=== PATIENT | female | born 1965 | race Caucasian/White ===

== ENCOUNTER 2016-10-23 18:32 | Emergency (ER) | payer OTHER ==
[~2016-10-23 18:32] MED LIST: ADRENALINE CHL INJ ONE; BENADRYL INJ 50 MG VIAL ONE; SOLU-Medrol 125 MG VIAL ONE
[2016-10-23] MEDS ORDERED: SOLU-Medrol 125 MG VIAL IVP ONE (18:35)
[2016-10-23] MEDS ORDERED: BENADRYL INJ 50 MG VIAL IVP ONE (18:35)
[2016-10-23 18:36] VITALS: BMI 21.6
[2016-10-23] MEDS ORDERED: BENADRYL INJ 50 MG VIAL IM ONE (18:39)
--- NOTE | 2016-10-23 18:45 | DR.GENAD ---
HPI - Complaint/Symptoms Chief Complaint Doctors Comments: Patient is alert in NAD; intercostal retraction, no wheeze or nasal flaring, minimal wheal reaction of left hand. Chief Complaint:: PATIENT WAS STUNG BY MULT. WASPS AND IS HAVING TROUBLE BREATHING AT THIS TIME. PATIENT STATED THAT THIS HAPPENED ABOUT 15 MINS AGO. - Source History Provided: Patient - Mode of Arrival Mode of Arrival: Ambulatory - Timing Onset of Chief Complaint: 10/23/16 PMH - PMH Past Medical History: Yes Past Medical History: Anxiety, Headaches Past Surgical History: Yes Surgical History: , Hysterectomy, Other - Family History History of Family Medical Conditions: Yes Family Medical History: Cancer, Hypertension - Social History Does patient currently use any type of tobacco product: No Have you used tobacco products in the last 12 months: No Type of Tobacco Use: None Does any household member use tobacco: No Alcohol Use: None Do you use any recreational Drugs:: Yes Lives With: Family Lives Where: Home - infectious screening In the last 2 months have you had wt loss of >10#?: NO Have you had fever, night sweats or hemotysis?: No Have you traveled outside the country in the last 6 months?: No Isolation: Standard ROS - Review of Systems Eyes: No Symptoms Reported ENTM: No Symptoms Reported Respiratoy: No Symptoms Reported Cardiovascular: No Symptoms Reported Gastrointestinal/Abdominal: No Symptoms Reported Genitourinary: No Symptoms Reported Neurological: No Symptoms Reported Musculoskeletal: No Symptoms Reported Integumentary: Lesions (pin point lesion on left hand) Hematologic/Lymphatic: No Symptoms Reported Endocrine: No Symptoms Reported Psychiatric: No Symptoms Reported All Other Systems: Reviewed and Negative PE - Vital Signs Vitals: Pulse Rate [Apical] 78 Pulse Rate 86 Respiratory Rate 17 Blood Pressure [Left Arm] 113/62 Blood Pressure [Right Arm] 112/62 Blood Pressure 122/81 O2 Sat by Pulse Oximetry 100 - General Limitations: No Limitations General Appearance: Alert, In No Apparent Distress - Head Head Exam: Normal Inspection, Atraumatic - Eyes Eye exam: Normal Appearance, PERRL, EOMI - ENT ENT Exam: Normal Exam External Ear Exam: Normal External Inspection TM/Canal Exam: Bilateral Normal Nose Exam: Normal Nose Exam Mouth Exam: Normal Inspection Throat Exam: Normal Inspection - Neck Neck Exam: Normal Inspection - Chest Chest Inspection: Normal Inspection - Respiratory Respiratory Exam: Normal Lung Sounds Bilat Respiratory Exam: Bilateral Clear to Auscultation - Cardiovascular Cardiovascular Exam: Regular Rate, Normal Rhythm - Abdominal Exam Abdominal Exam: Normal Inspection, Normal Bowel Sounds Abdominal Tenderness: negative: RUQ, RLQ, LUQ, LLQ, Epigastrium, Suprapubic, Diffuse, Mild, Moderate, Severe, Other - Extremities Extremities Exam: Other (left dorsum of hand with 3-5 minute punctums c/w insect bites) - Back Back Exam: Normal Inspection - Neurologic Neurological Exam: Alert, Oriented X3, CN II-XII Intact - Psychiatric Psychiatric Exam: Normal Affect - Skin Skin Exam: Warm, Dry, Intact Course - Treatment Treatment: NS, epi,diphenhydramine.solu medrol, pepcid - Reevaluation 1st: Improved ROR - Labs Reviewed Result Diagrams: 10/23/16 18:35 10/23/16 18:35 Laboratory: WBC 9.5 X10^3/uL (3.6-10.0) 10/23/16 18:35 RBC 4.35 X10^6/uL (3.5-5.4) 10/23/16 18:35 Hgb 13.9 g/dL (12.0-16.0) 10/23/16 18:35 Hct 39.4 % (36.0-47.0) 10/23/16 18:35 MCV 90.5 fL (80.0-100.0) 10/23/16 18:35 MCH 32.0 pg (27.0-34.0) 10/23/16 18:35 MCHC 35.3 g/dL (33.0-35.0) H 10/23/16 18:35 RDW 12.8 % (11.6-16.5) 10/23/16 18:35 Plt Count 294 X10^3/uL (150.0-450.0) 10/23/16 18:35 MPV 8.0 fL (7.4-11.0) 10/23/16 18:35 Neut % 68.1 % (42.0-75.0) 10/23/16 18:35 Lymph % 24.2 % (21.0-51.0) 10/23/16 18:35 [place] % 6.3 % (0.0-13.0) 10/23/16 18:35 Eos % 0.4 % (0.9-2.9) L 10/23/16 18:35 Baso % 1.0 % (0.2-1.0) 10/23/16 18:35 Neut # 6.5 x10^3/uL (2.2-4.8) H 10/23/16 18:35 Lymph # 2.3 X10^3/uL (1.3-2.9) 10/23/16 18:35 [place] # 0.6 x10^3/uL (0.3-0.8) 10/23/16 18:35 Eos # 0.0 x10^3/uL (0.0-0.2) 10/23/16 18:35 Baso # 0.1 X10^3/uL (0.0-0.1) 10/23/16 18:35 Absolute Nucleated RBC 0.0 /100WBC 10/23/16 18:35 Sodium 134 mmol/L (136-145) L 10/23/16 18:35 Corrected Sodium TNP 10/23/16 18:35 Potassium 3.5 mmol/L (3.5-5.1) 10/23/16 18:35 Chloride 100 mmol/L (98-107) 10/23/16 18:35 Carbon Dioxide 27.8 mmol/L (21-32) 10/23/16 18:35 BUN 19 mg/dL (7-18) H 10/23/16 18:35 Creatinine 0.87 mg/dL (0.55-1.02) 10/23/16 18:35 Est GFR (MDRD) Af Amer > 60 (>60) 10/23/16 18:35 Est GFR (MDRD) Non-Af > 60 (>60) 10/23/16 18:35 Glucose 101 mg/dL (65-99) H 10/23/16 18:35 Calcium 8.3 mg/dL (8.5-10.1) L 10/23/16 18:35 Corrected Calcium TNP 10/23/16 18:35 Total Bilirubin 0.20 mg/dL (0.2-1.0) 10/23/16 18:35 AST 20 Units/L (15-37) 10/23/16 18:35 ALT 27 Units/L (12-78) 10/23/16 18:35 Alkaline Phosphatase 77 Units/L (46-116) 10/23/16 18:35 Total Protein 7.2 g/dL (6.4-8.2) 10/23/16 18:35 Albumin 3.7 g/dL (3.4-5.0) 10/23/16 18:35 Globulin 3.5 g/dL (2.5-4.5) 10/23/16 18:35 Albumin/Globulin Ratio 1.1 Ratio (1.1-2.1) 10/23/16 18:35 - Diagnosis Discharge Problem: allergic reaction wasp - Discharge Plan Condition: Stable - Follow ups/Referrals Follow ups/Referrals: Misc [Primary Care Provider] - 3 days - Instructions
[2016-10-23] MEDS ORDERED: NS 1000 ML 1,000 ML ONE (18:46)
[2016-10-23 18:47] LABS: BASOPHILS # (AUTO) 0.1 X10^3/uL (0.0-0.1); EOSINOPHILS % (AUTO) 0.4 % (0.9-2.9); HEMATOCRIT 39.4 % (36.0-47.0); HEMOGLOBIN 13.9 g/dL (12.0-16.0); LYMPHOCYTES # (AUTO) 2.3 X10^3/uL (1.3-2.9); LYMPHOCYTES % (AUTO) 24.2 % (21.0-51.0); MEAN CORPUSCULAR HGB CONC 35.3 g/dL (33.0-35.0); MEAN CORPUSCULAR VOLUME 90.5 fL (80.0-100.0); MONOCYTES # (AUTO) 0.6 x10^3/uL (0.3-0.8); MONOCYTES % (AUTO) 6.3 % (0.0-13.0); NEUTROPHILS # (AUTO) 6.5 x10^3/uL (2.2-4.8); NEUTROPHILS % (AUTO) 68.1 % (42.0-75.0); PLATELET COUNT 294 X10^3/uL (150.0-450.0); RED BLOOD COUNT 4.35 X10^6/uL (3.5-5.4); RED CELL DISTRIBUTION WIDTH 12.8 % (11.6-16.5); WHITE BLOOD COUNT 9.5 X10^3/uL (3.6-10.0)
[2016-10-23 18:53] LABS: ALANINE AMINOTRANSFERASE 27 Units/L (12-78); ALBUMIN 3.7 g/dL (3.4-5.0); ALKALINE PHOSPHATASE 77 Units/L (46-116); ASPARTATE AMINO TRANSFERASE 20 Units/L (15-37); BLOOD UREA NITROGEN 19 mg/dL (7-18); CALCIUM 8.3 mg/dL (8.5-10.1); CARBON DIOXIDE 27.8 mmol/L (21-32); CHLORIDE 100 mmol/L (98-107); CREATININE 0.87 mg/dL (0.55-1.02); GLUCOSE 101 mg/dL (65-99); SODIUM 134 mmol/L (136-145); TOTAL PROTEIN 7.2 g/dL (6.4-8.2); eGFR BLACK RACES > 60 (>60); eGFR NON BLACK RACES > 60 (>60)
[2016-10-23] MEDS ORDERED: NS 1000 ML 1,000 ML IV SCH (19:00)
[2016-10-23] MEDS ORDERED: ATIVAN INJ 2 MG VIAL IVP ONE (19:24)
[2016-10-23] MEDS ORDERED: ATIVAN INJ 2 MG VIAL ONE (19:25)
[2016-10-23] MEDS ORDERED: PEPCID TAB 20 MG PO SCH (21:00)
[2016-10-23 21:07] VITALS: BP 118/64
[2016-10-24] MEDS ORDERED: SOLU-Medrol 125 MG VIAL IVP ONE (18:40)
== END 2016-10-23 21:07 | disposition home or self-care (01) ==
LOC: ER 18:41
DX: T78.40XA Allergy, unspecified, initial encounter (principal)
CPT/HCPCS: 36415; 80053; 85025; 93041; 96365; 96367; 96372; 96374; 96375; 99282; 99283; A4222; J0170; J1200; J2060; J2930